=== PATIENT | male | born 1945 | race Caucasian/White ===

== ENCOUNTER 2019-06-08 11:30 | Day surgery (SDC) | payer MEDICARE, BC ==
--- NOTE | 2019-06-07 12:56 | History and Physical - Ferro ---
CHIEF COMPLAINT/HISTORY OF CHIEF COMPLAINT: This patient presents with a history of an intractable lumbar radiculopathy. Due to the failure of therapy, a spinal cord stimulator trial was conducted on 05/16/2019 with 75-85% pain control. Due to the failure of all therapies and the success of the trial, the patient presents today for implantation of a permanent system. PAST MEDICAL HISTORY: Noncontributory. PAST SURGICAL HISTORY: Lumbar spinal surgery and knee surgery. MEDICATIONS ON ADMISSION: List to be provided. No blood thinners. ALLERGIES: None. FAMILY/PSYCHOSOCIAL HISTORY: Social history - Smoking and caffeine. Family history - Coronary artery disease and cancer. SYSTEMS REVIEW: The patient is appropriate in no acute distress. The remainder of the systems review is positive for glasses and degenerative arthritis. PHYSICAL EXAMINATION: Height is 5'6", weight is 250. No vital signs. HEENT: Within normal limits. LUNGS: Clear. HEART: Rapid and regular. ABDOMEN: Nontender. MUSCULOSKELETAL: Examination of the musculoskeletal system shows diffuse tenderness adjacent to the lumbar laminectomy scar. Range of motion does produce pain throughout both low back and legs. Lower extremity function is intact. There is no obvious motor or sensory abnormalities. No assistive device used for ambulation. NEUROLOGIC: Cranial nerves are intact. IMPRESSION: POST LUMBAR LAMINECTOMY SYNDROME, ICD-10 CODE M96.1 WITH RADICULOPATHY, ICD-10 CODE M54.16 AND M54.17. PLAN: Due to the failure of therapy and the success of a stimulator trial, the patient presents today for implantation of a permanent system. The procedure will be considered outpatient, although an overnight stay will be evaluated. The potential risks, side effects, and complications have all been carefully reviewed and discussed. Questions answered. JOB NUMBER: [id number] [facility]
[~2019-06-08 11:30] MED LIST: ACETAMINOPHEN 1,000 MG/100 ML BTL IVPB ONE; CEFAZOLIN 1 Gram 1 GM/50 ML BAG IVPB ONE; CEFAZOLIN 2 Gram 2 GM/50 ML BAG IVPB ONE; FAMOTIDINE 20MG TABLET PO ONE; MECLIZINE 25 MG TABLET PO ONE; METOCLOPRAMIDE 10 MG TABLET PO ONE
[2019-06-08] MEDS ORDERED: HYDROMORPHONE HCL 2 MG/ML VIAL IV ONE (11:31)
[2019-06-08] MEDS ORDERED: MIDAZOLAM HCL 2MG/2ML VIAL IV ONE (11:31)
[2019-06-08] MEDS ORDERED: FENTANYL PF 100MCG/2ML VIAL IV ONE (11:31)
[2019-06-08] MEDS ORDERED: LIDOCAINE 2% MDV (20MG/ML) 20ML VIAL IV ONE (11:31)
[2019-06-08] MEDS ORDERED: PROPOFOL 10 MG/ML VIAL IV ONE (11:31)
[2019-06-08 12:05] LABS: BLEEDING TIME 4.5 MINUTES (1.5-7.0)
[2019-06-08 12:32] LABS: PARTIAL THROMBOPLASTIN TIME 25.9 SECONDS (24.5-39.1); PROTHROMBIN TIME (PATIENT) 10.6 SECONDS (9.5-12.1)
[2019-06-08] MEDS ORDERED: RINGERS SOLUTION,LACTATED 1,000 ML IV ONE (13:10)
[2019-06-08] MEDS ORDERED: CEFAZOLIN 1G VIAL IR ONE (15:38)
[2019-06-08] MEDS ORDERED: LIDOCAINE 1% W/EPI 1:100,000 MDV 20 ML VIAL SQ ONE (16:09)
[2019-06-08] MEDS ORDERED: BUPIVACAINE 0.5% W/EPI MPF 30 ML VIAL SQ ONE (16:10)
--- NOTE | 2019-06-09 09:20 | Operative Note - Ferro ---
DATE OF SURGERY: 06/08/2019 PREOPERATIVE DIAGNOSIS: POST LUMBAR LAMINECTOMY SYNDROME, ICD-10 CODE M96.1, WITH RADICULOPATHY, ICD-10 CODE M54.16 AND M54.17. OPERATION: 1. FLUOROSCOPICALLY GUIDED LEFT EPIDURAL ACCESS T11-T12, PLACEMENT OF SPINAL CORD STIMULATOR LEAD 1 [employer] 16, 6 ELECTRODES POSITIONED LEFT T7. 2. FLUOROSCOPICALLY GUIDED LEFT EPIDURAL ACCESS L1-L2, PLACEMENT OF SPINAL CORD STIMULATOR LEAD 2 [employer] 16, 6 ELECTRODES POSITIONED RIGHT T7. 3. COMPLEX PROGRAMMING OF LEAD 1 OVER 20 MINUTES FOLLOWED BY COMPLEX PROGRAMMING OF LEAD 2 OVER 20 MINUTES. 4. INCISION AND SUBCUTANEOUS DISSECTION AND ANCHORING OF LEAD 1 AND LEAD 2 TO SUPRASPINOUS FASCIA WITH THE [employer] LOCKING ANCHOR. 5. INCISION AND SUBCUTANEOUS DISSECTION AND CREATION OF SUBCUTANEOUS POUCH AT RIGHT FLANK AT A SITE PICKED BY THE PATIENT FOR THE GENERATOR. 6. INCISION, SUBCUTANEOUS DISSECTION AND CREATION OF SUBCUTANEOUS POUCH FOR PLACEMENT OF GENERATOR IDENTIFIED [employer] PROGRAMMABLE RECHARGEABLE WAVEWRITER. 7. TUNNELLING BETWEEN LEAD POUCH AND GENERATOR POUCH, TUNNELLING LEADS INTO GENERATOR POUCH, EACH LEAD INTERFACED THE GENERATOR. 8. PLACEMENT OF GENERATOR POUCH, PLACEMENT OF LEADS INTO POUCH, CLOSURE OF ALL INCISIONS USING VICRYL FOR THE FASCIA, MERCEDES FOR THE SKIN, AND DERMABOND CLOSURE. 9. COMPLEX RECOVERY ROOM PROGRAMMING INTERNAL GENERATOR HOME USE 2 STIMULATORS 20 MINUTES. SURGEON: Cuate Madrigal D.O. ANESTHESIA: Local sedation. ANESTHESIA PROVIDER: Abdirahman Galarza CRNA INDICATION: This patient presents with a history of intractable lumbar radiculopathy. Due to the failure of therapy, a spinal cord stimulator trial was conducted office based. During the trial it was found that only one of two possible leads was placed because of his significant arthritis and degenerative disease. He is here for permanent implant of stimulator with up to 75% pain control with a single lead. It was felt that with two leads better stimulation patterns and more appropriate stimulation patterns could be achieved. PROCEDURE: Intravenous line, vital sign monitoring, IV sedation. Prepped and draped with sterile technique. Under imaging with the patient prone, sterile prep, sterile technique, the epidural interspace at T11-T12 consistent with the trial infiltrated, a curved access needle with loss of resistance into the space at T12-L1, attempt to access the space as unsuccessful, at L1-L2 the space was accessed, curved Epi-Med needle with loss of resistance was able to access the epidural space. At T11-T12 the spinal cord stimulator Lead 1, a [employer] Infinion 16, 6 electrodes was advanced into the epidural space under imaging and positioned left side of T7. With the successful access at L1-L2 the spinal cord stimulator Lead 2, a [employer] Infinion 16, 6 electrodes was positioned right of T7. Complex programming of Lead 1 over 20 minutes followed by complex programming of Lead 2 over 20 minutes resulting in a complete pattern of stimulation across the back and into the hip and legs which was much greater and more even and a wider distribution than the single lead trial. The patient was then questioned as to whether or not we were in the appropriate locations and he indicated we were, when asked if this was better than the trial he indicated we had more areas. He was given the option to implant, remove or continued to program and he opted to implant. Questions were repeated with the same response. He was then re-sedated by Anesthesia. The skin above and below the two needles was infiltrated, an incision was made and two separate incisional sites were made, one at T11-T12 and the other at L1-L2. The incisions were conducted to the supraspinous fascia at each of the two locations. Each of the two leads was then anchored to the supraspinous fascia at each of the sites with an anchoring device and nonabsorbable suture. At the right flank, a site which was picked by the patient for the generator, the skin was infiltrated, incision made, and subcutaneous dissection was conducted to form a pouch of suitable size and depth for the generator, A [employer] programmable rechargeable Wavewriter. A tunnelling tool was then used to carry each of the two leads into the generator pouch and then each lead was interfaced with the generator. Antibiotic irrigation and Bovie for hemostasis. The generator was placed into its own pouch, the two leads were placed into their own pouch and then all three incisions were closed using Vicryl for the fascia and mercedes for the skin. Op-Site dressing was then placed over the incisions. He was transported to the Recovery Room stable. No side effects. He had full functionality of his extremities. He was monitored until stable and then prepared for discharge by his request. In the Recovery Room, complex programming of the generator over 20 minutes was performed reestablishing stimulation and pain control to all of the appropriate areas. The patient requests discharge home. DISCHARGE INSTRUCTIONS: 1. The sites will remain clean and dry, he may not shower or bathe in any way until he is seen in the office in 7-10 days at which time the mercedes will be removed. 2. Standard medications resumed including the antibiotic Levaquin 500 mg once a day for fourteen days. 3. The office will contact the patient in the next 24-48 hours to set up a time in the next 7-10 days for us to evaluate the sites. Until then, he is to keep his activities low. All other instructions provided, numbers to contact if problems given. He was then discharged. JOB NUMBER: [id number] [facility]
== END 2019-06-08 17:10 | disposition home or self-care (01) ==
LOC: SUR 11:30
PROVIDERS: ATTEND Pain Medicine Interventional Pain Medicine
DX: M96.1 Postlaminectomy syndrome, not elsewhere classified (principal); M54.16 Radiculopathy, lumbar region; M54.17 Radiculopathy, lumbosacral region; J44.9 Chronic obstructive pulmonary disease, unspecified; F17.210 Nicotine dependence, cigarettes, uncomplicated
CPT/HCPCS: 72020; 85002; 85610; 85730; 95972; C1820; C1883; J0690; J7120